=== PATIENT | male | born 1965 | race Caucasian/White ===

== ENCOUNTER → 2017-10-16 | Outpatient (CLI) | payer BC ==
--- NOTE | 2017-10-16 18:28 | US ---
EXAMINATION TYPE: US venous doppler duplex LE RT DATE OF EXAM: 10/16/2017 5:43 PM COMPARISON: NONE CLINICAL HISTORY: M79.661 Pain in right lower legR22.41. SIDE PERFORMED: right TECHNIQUE: The lower extremity deep venous system is examined utilizing real time linear array sonog allie with graded compression, doppler sonography and color-flow sonography. VESSELS IMAGED: External Iliac Vein (EIV) Common Femoral Vein Deep Femoral Vein Greater Saphenous Vein * Femoral Vein Popliteal Vein Small Saphenous Vein * Proximal Calf Veins (* superficial vessels) Right Leg: Negative for DVT IMPRESSION: Normal exam. No evidence of deep venous thrombosis in the right leg.
--- NOTE | 2017-10-16 18:34 | XR ---
EXAMINATION TYPE: XR knee complete RT DATE OF EXAM: 10/16/2017 COMPARISON: NONE HISTORY: Knee pain TECHNIQUE: 3 views FINDINGS: There is some spurring of the medial femoral and tibial condyles. I see no fracture nor dis location. There is no sign of joint effusion. IMPRESSION: Mild osteoarthritic changes. No fracture.
--- NOTE | 2017-10-16 18:35 | XR ---
EXAMINATION TYPE: XR tibia fibula RT DATE OF EXAM: 10/16/2017 COMPARISON: NONE HISTORY: Pain TECHNIQUE: 4 views FINDINGS: The knee joint and ankle joint appear intact. I see no fracture nor dislocation. Soft tissu es appear normal. IMPRESSION: Negative right tibia and fibula exam.
== END | disposition home or self-care (01) ==
LOC: RADUSMAIN 17:04
PROVIDERS: ATTEND Internal Medicine
DX: M17.11 Unilateral primary osteoarthritis, right knee (principal); R22.41 Localized swelling, mass and lump, right lower limb; M79.661 Pain in right lower leg